=== PATIENT | male | born 2000 | race Caucasian/White ===

== ENCOUNTER 2018-09-26 20:25 | Emergency (ER) | payer OTHER, BC ==
[~2018-09-26] VITALS: Ht 185.4 cm; Wt 86.2 kg
--- NOTE | 2018-09-26 20:35 | NUR ---
Offered pt ice pack; pt refused.
--- NOTE | 2018-09-26 21:17 | Diagnostic Imaging Report ---
INDICATION: Pain. Three views of the right foot were obtained. FINDINGS: The alignment is normal. There is no fracture or dislocation. Soft tissues are unremarkable. IMPRESSION: No acute fracture or dislocation Dictated by: Dictated on workstation # [id number]
--- NOTE | 2018-09-26 21:19 | Diagnostic Imaging Report ---
INDICATION: Pain. Three views of the right ankle were obtained. FINDINGS: The alignment is normal. The plafonds and talar dome are intact. The ankle mortise is symmetric. There is no fracture or dislocation. Soft tissues are unremarkable. IMPRESSION: No acute fracture or dislocation about the right ankle Dictated by: Dictated on workstation # [id number]
--- NOTE | 2018-09-26 21:39 | NUR ---
Pt reports talking to senior tax manager at work and senior tax manager is telling pt drug screen is to be done at ER. Registration reports speaking with [employer] [facility] [id number] and [employer], and [employer] is not contracted with [place] [employer] for drug screens.
--- NOTE | 2018-09-26 21:50 | ED Lower Extremity ---
General Chief Complaint: Lower Extremity Stated Complaint: RT FOOT INJ Nursing Triage Note: Pt to fast track in wheelchair. Pt reports being at work at [employer], and unloading a pallet nalini full of sathish when the pt's R foot went under the nalini and the nalini rolled up onto the foot. Pt estimates there was approximately 3000 lbs of sathish on the nalini. Pt c/o foot pain, and pain the 3rd and fourth toe. 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 Registration reports talking to [facility] [employer] and was told [employer] does own testing. Nursing Sepsis Screen: No Definite Risk Source: patient Exam Limitations: no limitations History of Present Illness Date Seen by Provider: Sep 26, 2018 Time Seen by Provider: 20:30 Initial Comments This 18-year-old gentleman presents to the emergency room with a workplace injury to the right foot. Patient was attempting to move a pallet full of sathish by pulling backward on a pallet nalini. He slept in the process and his right foot slipped forward as the pallet nalini rolled up on his foot and onto his ankle. The incident happened shortly before arrival to the ER. He denies any other injuries. He is able to bear weight. He has evidence of contusion on the dorsal aspect of his toes and foot extending up to the ankle. His third and fourth toes are particularly sore. He took ibuprofen 400 mg prior to arrival. He rates his pain as 6 or 7 out of 10. Allergies and Home Medications Patient Home Medication List Home Medication List Reviewed: Yes Review of Systems Constitutional: no symptoms reported EENTM: no symptoms reported Respiratory: no symptoms reported Cardiovascular: no symptoms reported Gastrointestinal: no symptoms reported Genitourinary: no symptoms reported Musculoskeletal: see HPI Skin: see HPI Psychiatric/Neurological: No Symptoms Reported Past Oybzzak-Fonuij-Kvdpzk Hx Past Med/Social Hx: Reviewed Nursing Past Med/Soc Hx Patient Social History Alcohol Use: Denies Use Recreational Drug Use: No 2nd Hand Smoke Exposure: No Recent Foreign Travel: No Contact w/Someone Who Travel: No Recent Infectious Disease Expo: No Recent Hopitalizations: No Physical Abuse: No Sexual Abuse: No Seasonal Allergies Seasonal Allergies: No Past Medical History Surgeries: No Respiratory: No Cardiac: No Neurological: No Genitourinary: No Gastrointestinal: No Musculoskeletal: No Endocrine: No HEENT: No Cancer: No Psychosocial: No Integumentary: No Blood Disorders: No Adverse Reaction/Blood Tranf: No Physical Exam Vital Signs Vital Signs - First Documented 09/26/18 20:30 Temp 98.2 Pulse 68 Resp 15 B/P (MAP) 133/79 (97) Pulse Ox 100 O2 Delivery Room Air Capillary Refill : Less Than 3 Seconds Height, Weight, BMI Height: 6'1.00" Weight: 190lbs. oz. 86.342946ai; BMI Method:Stated General Appearance: WD/WN, no apparent distress HEENT: PERRL/EOMI, normal ENT inspection, pharynx normal Neck: normal inspection Cardiovascular: regular rate, rhythm, no edema, no murmur Respiratory: lungs clear, normal breath sounds, no respiratory distress Legs: right leg non-tender, right leg normal inspection, right leg normal range of motion, right leg no evidence of injury Ankles: right ankle other (mild tenderness and abrasion to the anterior surface of the ankle) Feet: right foot abrasions/lacerations, right foot bone tenderness, right foot ecchymosis, right foot limited range of motion, right foot pain, right foot soft tissue tenderness, right foot swelling, right foot other (there is pain, tenderness, swelling, abrasions, and ecchymosis over the dorsal aspect of the right foot. The mid dorsum of the foot and the third and fourth toes are particularly tender. He is able to move his toes and foot but range of motion is decreased secondary to pain.) Neurologic/Tendon: normal sensation, normal motor functions, normal tendon functions, responds to pain Neurologic/Psychiatric: car carder II-XII nml as tested, no motor/sensory deficits, alert, normal mood/affect, oriented x 3 Skin: warm/dry, ecchymosis, other (abrasions and erythema) Progress/Results/Core Measures Results/Orders My Orders Orders - ZEUS GREER MD Foot, Right, 3 View (09/26/18 20:39) Ankle, Right, 3 Views (09/26/18 20:39) Vital Signs/I&O 09/26/18 09/26/18 20:30 21:55 Temp 98.2 98.2 Pulse 68 65 Resp 15 15 B/P (MAP) 133/79 (97) 135/77 (96) Pulse Ox 100 100 O2 Delivery Room Air Room Air Blood Pressure Mean: 97 Progress Progress Note : Progress Note X-rays were obtained and revealed no fractures. Ice was applied. The situation was discussed with [facility] and occupational health. Screening by occupational health or drug screening was requested or obtained. [employer] commented that they perform their own screenings and screening by occupational health was not necessary. Paperwork from [facility] was completed. Diagnostic Imaging Diagonstic Imaging: Xray Plain Films/CT/US/NM/MRI: other (right foot) Comments X-ray of the right foot viewed by me and report reviewed. See report below: NAME: SIDNEY [facility]ULKNER [facility] REC#: [id number] PT STATUS: REG ER : 2000 PHYSICIAN: ZEUS GREER MD ADMIT DATE: 09/26/18/ER Signed Date of Exam: 09/26/18 FOOT, RIGHT, 3 VIEW INDICATION: Pain. Three views of the right foot were obtained. FINDINGS: The alignment is normal. There is no fracture or dislocation. Soft tissues are unremarkable. IMPRESSION: No acute fracture or dislocation Dictated by: Dictated on workstation # [id number] Dict: 09/26/182105 Trans: 09/26/182122 Interpreted by: ALEKSANDER ANGULO MD Electronically signed by: ALEKSANDER ANGULO MD 09/26/182122 Diagonstic Imaging: Xray Plain Films/CT/US/NM/MRI: ankle Comments X-ray of the right ankle viewed by me and report reviewed. See report below: NAME: SIDNEY FAULKNER [facility] REC#: [id number] PT STATUS: REG ER : 2000 PHYSICIAN: ZEUS GREER MD ADMIT DATE: 09/26/18/ER Signed Date of Exam: 09/26/18 ANKLE, RIGHT, 3 VIEWS INDICATION: Pain. Three views of the right ankle were obtained. FINDINGS: The alignment is normal. The plafonds and talar dome are intact. The ankle mortise is symmetric. There is no fracture or dislocation. Soft tissues are unremarkable. IMPRESSION: No acute fracture or dislocation about the right ankle Dictated by: Dictated on workstation # [id number] Dict: 09/26/182106 Trans: 09/26/182122 Interpreted by: ALEKSANDER ANGULO MD Electronically signed by: ALEKSANDER ANGULO MD 09/26/182122 Departure Impression Primary Impression: Contusion of right foot including toes Qualified Codes: S90.31XA - Contusion of right foot, initial encounter; S90.121A - Contusion of right lesser toe(s) without damage to nail, initial encounter Additional Impression: Contusion of right ankle, initial encounter Disposition: 01 HOME, SELF-CARE Condition: Improved Departure-Patient Inst. Decision time for Depature: 21:47 Referrals: NO,LOCAL PHYSICIAN (PCP/Family) Primary Care Physician Patient Instructions: Contusion (DC) Add. Discharge Instructions: Elevate foot as close to the level of your heart as much as possible. Apply ice in 20 minute intervals to help with pain and swelling. You may take ibuprofen up to 600 mg every 6 hours and/or Tylenol (acetaminophen) up to 1000 mg every 6 hours as needed for pain. Have limited weightbearing and walking initially and gradually increase level of activity as pain allows. Follow up with a medical provider in cooperation with your employer to obtain clearance for regular duty. Please arrange this follow-up with your employer. Return to care promptly few have significantly worsening symptoms, especially if you lose the ability to move or feel your toes or foot. All discharge instructions reviewed with patient and/or family. Voiced understanding. ZEUS GREER MD Sep 26, 2018 21:50
[2018-09-26 21:55] VITALS: BP 135/77
== END 2018-09-26 21:55 | disposition home or self-care (01) ==
LOC: ER 20:28
DX: S90.31XA Contusion of right foot, initial encounter (principal); S90.01XA Contusion of right ankle, initial encounter; W23.1XXA Caught, crushed, jammed, or pinched between stationary objects, initial encounter; Y92.59 Other trade areas as the place of occurrence of the external cause; Y99.0 Civilian activity done for income or pay
CPT/HCPCS: 73610; 73630

== ENCOUNTER → 2021-02-11 | Outpatient (CLI) | payer BC, OTHER ==
--- NOTE | 2021-02-11 16:13 | Diagnostic Imaging Report ---
EXAMINATION: Thoracic spine at 2:25 PM. INDICATION: Back pain. TECHNIQUE/COMPARISON: AP, lateral, and swimmer's views were obtained. There are no prior studies available for comparison. FINDINGS: The lateral view shows the vertebral body heights and alignment to be generally within normal limits. The intervertebral spaces are fairly well-maintained. There is no fracture or acute bony abnormality appreciated. There is a linear lucency extending transversely through the superior half of the vertebral body of T5 on the AP view. This is probably secondary to superimposition of the aris. There is no sign of a paraspinal mass. IMPRESSION: 1. There is no evidence for an acute bony abnormality. 2. If clinical concern regarding an underlying abnormality persists and further imaging is desired, then MRI would be recommended. Dictated by: Dictated on workstation # [id number]
== END ==
LOC: RAD 14:02
PROVIDERS: ATTEND Internal Medicine
DX: M54.6 Pain in thoracic spine (principal)
CPT/HCPCS: 72072